=== PATIENT | female | born 1990 | race Caucasian/White ===

== ENCOUNTER 2025-07-16 02:16 | Observation (INO) ==
--- NOTE | 2025-07-16 02:34 | Emergency Department Note ---
Impression & Plan Acute cholecystitis ED Provider Note CHIEF COMPLAINT: Abdominal pain HISTORY OF PRESENTING ILLNESS: Patient is a 34-year-old female who arrives to the emergency department for evaluation of epigastric pain with radiation into the back. Patient states she is currently awaiting consultation for a general surgeon for a routine cholecystectomy, due to gallbladder sludge, and gallstones. The patient states she began to develop severe pain, with nausea and vomiting at approximately midnight. She reports no fever, however she is diaphoretic. REVIEW OF SYSTEMS: See HPI for pertinent positives and pertinent negatives. ALLERGIES: See below MEDICATIONS: See below PAST MEDICAL HISTORY: See below PHYSICAL EXAM: VITALS: Vitals are noted on the nurse's note and reviewed by myself. Vital signs stable. GENERAL: 34-year-old female, in mild distress, diaphoretic, well-developed well- nourished. SKIN: The skin was without rashes, erythema, edema, or bruising. HEAD: Normocephalic atraumatic. HEART: Regular rate and rhythm without murmurs gallops or rubs. LUNGS: Clear to auscultation bilaterally without wheezes, rales or rhonchi. No retractions or accessory muscle use. ABDOMEN: Positive bowel sounds x 4. Soft, tenderness to palpation epigastrium, right upper quadrant. No rebound tenderness or guarding. MUSCULOSKELETAL: No muscle atrophy, erythema, or edema noted. Normal gait. Strength 5/5 throughout. NEURO: Patient was alert and oriented to person place and time. No focal neurological deficits. DIFFERENTIAL DIAGNOSIS: Cholecystitis, biliary colic, choledocholithiasis, pancreatitis, cholangitis, hepatitis, hepatic abscess, liver mass, PUD, gastritis, ischemia, as well as other pathologies. ED COURSE AND MEDICAL DECISION MAKING: HISTORY FROM INDEPENDENT HISTORIAN: Mother at bedside serving secondary historian. MEDICATIONS GIVEN: 1 L NSS bolus, 4 mg IV Zofran x 2 doses, 4 mg IV morphine, 0.5 mg hydromorphone, 1 mg hydromorphone, 4.5 g Zosyn INTERPRETATION OF LABS: I interpreted the labs with full lab results as below in the lab section of this note. Pertinent lab results discussed in the MDM section below. INTERPRETATION OF IMAGING: Imaging studies were interpreted by myself and read by radiology as per the imaging section of this note. MDM SUMMARY: The patient is a pleasant, 34-year-old female who arrives to the emergency department for evaluation of the above-stated complaint. Saline lock was established, lab work was obtained. Lab work shows leukocytosis 15.48, no anemia. CMP is unremarkable, lipase negative. hCG qualitative negative. Urinalysis negative for infection. Ultrasound imaging of the gallbladder was obtained which shows a distended gallbladder measuring 15.4 cm, with a thickened wall measuring 3.3 mm with trace edema. Evidence of stone and sludge present, with a 6 mm stone seen at the neck versus the cystic duct. CBD measures 6.5 mm. Patient was provided IV fluids, IV Zofran, pain control, and antibiotics as above. I spoke with Dr. Nuñez[facility]. GI consult will be obtained due to COPD dilatation. Patient has no transaminitis, normal lipase. The patient was admitted to Dr. Paul, please refer to his documentation, as well as GEN surge, and GI for further patient evaluation and treatment. DIAGNOSIS: Acute cholecystitis The chart was completed utilizing [employer] Speech voice recognition software. Grammatical errors, random word insertions, pronoun errors, and incomplete sentences are an occasional consequence of this system due to software limitations, ambient noise, and hardware issues. Any formal questions or concerns about the content, text, or information contained within the body of this dictation should be directly addressed to the provider for clarification. Past Med/Surg History Problem List (Updated 07/16/25 @ 06:27 by MAREK Singh) Acute cholecystitis (Acute) Medical History No significant past medical history Surgical History No pertinent past surgical history Social History Smoking Status: Current every day smoker Tobacco Type: E-cigarettes / Vaping Second Hand Exposure: No; Do You Dip or Chew Tobacco: No; Hx Alcohol Use: No Hx Substance Use: No Preferred Language: Czech Communication Ability: Effective Transport Medic Required: No Beliefs That Will Affect Care: None Current Living Situation: Family Other Information That Helps Us Care for You: No Feels Safe at Home: Yes Safety Concerns: Feels Safe At This Time Assistive Devices: Glasses Allergies Allergies Allergy/AdvReac Type Severity Reaction Status Date / Time amoxicillin Allergy Mild Rash Verified 06/21/25 18:36 erythromycin base Allergy Mild Rash Verified 06/21/25 18:36 Home Meds Home Medications Medication Instructions Recorded Confirmed norethindrone acetate 1 mg-ethinyl 1 tab PO DAILY 06/28/25 07/16/25 estradiol 20 mcg tablet (Microgestin) semaglutide (weight loss) 2.4 2.4 mg subcut WK 06/28/25 07/16/25 mg/0.75 mL subcutaneous pen injector (Wegovy) Previous Rx's Medication Instructions Recorded pantoprazole 40 mg tablet,delayed 40 mg PO DAILY #30 tabs 06/28/25 release (Protonix) Results & Data (ED) Vital Signs Vital Signs - 24 hr 07/16/25 02:20 07/16/25 02:38 07/16/25 02:53 Temperature 36.5 C Temperature Source Temporal Artery Scan Pulse Rate 78 72 Pulse Rate [Finger] 80 Pulse Rhythm [Finger] Regular Pulse Strength [Finger] Normal Respiratory Rate 16 20 Respiratory Effort / Characteristics Non-Labored Spontaneous Non-Labored Spontaneous Respiratory Depth Normal Normal Respiratory Pattern Regular Regular Blood Pressure 114/76 Blood Pressure [Right Arm] 93/62 L Blood Pressure Mean 88 Blood Pressure Mean [Right Arm] 72 Blood Pressure Position [Right Arm] Lying Pulse Oximetry 97 98 Oxygen Delivery Method Room Air Room Air Sepsis Recent Fever Within 48 Hours No Sepsis New/Unexplained Change in Mental Status No Sepsis Action Taken by Nursing No Action Required Home Medications Current Medication List: was personally reviewed by me Laboratory Data Attestation: I reviewed the patient's lab results. 07/16/25 02:38 07/16/25 02:38 Lab Results 07/16/25 Range/Units 02:38 WBC 15.48 H (4.8-10.8) K/ul RBC 5.02 (4.20-5.40) M/uL Hgb 14.5 (12.0-16.0) g/dl Hct 42.6 (37.0-47.0) % MCV 84.9 (80.0-100.0) fL MCH 28.9 (25.0-34.0) pg MCHC 34.0 (32.0-36.0) g/dL RDW Std Deviation 39.5 (36.4-46.3) fL RDW Coeff of Cheryle 12.9 (11.5-14.5) % Plt Count 223 (130-400) K/uL MPV 12.2 (9.4-12.4) fL Immature Gran % (Auto) 0.5 % Neut % (Auto) 65.5 % Lymph % (Auto) 26.2 % Jennings % (Auto) 5.9 % Eos % (Auto) 1.6 % Baso % (Auto) 0.3 % Neut # (Auto) 10.16 H (1.40-6.50) K/uL Lymph # (Auto) 4.05 H (1.20-3.40) K/uL Jennings # (Auto) 0.92 H (0.11-0.59) K/uL Eos # (Auto) 0.24 (0.00-0.50) K/uL Baso # (Auto) 0.04 (0.00-0.20) K/uL Immature Gran # (Auto) 0.07 (0.01-0.20) K/uL Sodium 139 (136-145) mmol/L Potassium 3.6 (3.5-5.1) mmol/L Chloride 105 (98-107) mmol/L Carbon Dioxide 23 (21-32) mmol/L Anion Gap 11 (3-11) BUN 12 (6-23) mg/dl Creatinine 0.88 (0.6-1.2) mg/dl Est Cr Clr Drug Dosing 106.0 ml/min eGFR 89.49 BUN/Creatinine Ratio 13.6 (10-20) Glucose 146 H (70-99(Fasting)) mg/dl Calcium 9.3 (8.6-10.3) mg/dl Total Bilirubin 0.7 (0.2-1.0) mg/dl AST 29 (13-39) U/L ALT 52 (7-52) U/L Alkaline Phosphatase 35 (34-104) U/L Total Protein 7.6 (6.0-8.3) gm/dl Albumin 4.1 (3.4-5.0) gm/dl Globulin 3.5 (2.5-4.0) gm/dl Albumin/Globulin Ratio 1.2 (0.9-2) Lipase 28 (11-82) U/L Administered Medications Sodium Chloride (Nss) 1,000 mls @ 100 mls/hr IV .Q10H ONE Stop: 07/16/25 14:59 Last Admin: 07/16/25 05:58 Dose: 100 mls/hr Documented By: MAURICE Discontinued Medications Hydromorphone HCl (Hydromorphone Inj 0.5 Mg/0.5 Ml Syr) 0.5 mg IV NOW STA Stop: 07/16/25 03:26 Last Admin: 07/16/25 03:32 Dose: 0.5 mg Documented By: BRANDIE Hydromorphone HCl (Hydromorphone Inj 1 Mg/Ml Syringe) 1 mg IV NOW STA Stop: 07/16/25 04:34 Last Admin: 07/16/25 04:47 Dose: 1 mg Documented By: BRANDIE Sodium Chloride (Nss) 1,000 mls @ 999 mls/hr IV .Q1H1M ONE Stop: 07/16/25 03:38 Last Infusion: 07/16/25 03:33 Dose: Infused Documented By: Admin: 07/16/25 02:45 Dose: 999 mls/hr Documented By: MONAE Piperacillin Sod/Tazobactam Sod (Zosyn) 4.5 gm in 100 mls @ 200 mls/hr IV NOW ONE; Protocol Stop: 07/16/25 05:03 Last Infusion: 07/16/25 05:23 Dose: Infused Documented By: Admin: 07/16/25 04:47 Dose: 200 mls/hr Documented By: BRANDIE Morphine Sulfate (Morphine Sulfate 4 Mg/Ml 1 Ml Carp\Vial) 4 mg IV NOW STA Stop: 07/16/25 02:39 Last Admin: 07/16/25 02:46 Dose: 4 mg Documented By: MONAE Ondansetron HCl (Ondansetron Inj 2 Mg/Ml 2 Ml Vial) 4 mg IV NOW STA Stop: 07/16/25 02:39 Last Admin: 07/16/25 02:45 Dose: 4 mg Documented By: MONAE Ondansetron HCl (Ondansetron Inj 2 Mg/Ml 2 Ml Vial) 4 mg IV NOW STA Stop: 07/16/25 04:35 Last Admin: 07/16/25 04:47 Dose: 4 mg Documented By: BRANDIE Imaging Data Attestation: I personally reviewed and interpreted this imaging study as follows: Radiologist's Impression: Gallbladder Ultrasound 07/16/25 02:38 EXAM: US gallbladder CLINICAL HISTORY: epigastric/RUQ pain TECHNIQUE: Limited ultrasound of the liver and gallbladder was performed in grayscale and Doppler. Multiple images were obtained in transverse and longitudinal planes. COMPARISON: No prior studies are available for comparison. FINDINGS: Liver: Liver size: 16.5 cm, with mildly increased echogenicity. No evidence of focal lesions, cysts, or masses. Hepatic vasculature appears normal. Gallbladder: Gallbladder size: Distended, measured 15.4 cm. The thickened wall measured 3.3 mm, with trace edema. Evidence of stones and sludge, with a 6-mm stone seen at the neck vs. the cystic duct, which did not move with a change in position. Biliary Tree: Common bile duct diameter: dilated, measured 6.5 mm. Right kidney: normal size, no hydronephrosis. Pancreas: Limited visualization of the tail due to bowel gas. IMPRESSION: 1. Mildly enlarged echogenic liver. 2. Calculous cholecystitis. Electronically signed by Ty Pearl 07-16-2025 05:29 AM Discharge Plan Visit Data Chief Complaint: Back Injury/Pain Stated Complaint: BACK PAIN, NAUSEA, VOMITING - GAULBLADDER? ED Provider: Kaleb Tinajero ED Midlevel Provider: Sanam Al Discharge Problem: Acute cholecystitis Patient Disposition: Admitted As Inpatient Condition: Fair Discharge Instructions Interventions: ED Discharge Assessment Last Done: 07/16/25 05:50
[2025-07-16] MEDS: SODIUM CHLORIDE 0.9% 1,000 ML IV ONE ×2 (02:45→05:58)
[2025-07-16] MEDS: ONDANSETRON INJ 2 MG/ML 2 ML VIAL IV STA ×2 (02:45→04:47)
[2025-07-16] MEDS: MoRPHine SULFATE 4 MG/ML 1 ML CARP\\VIAL IV STA (02:46)
[2025-07-16 02:53] LABS: Hematocrit (blood only) 42.6 % (37.0-47.0); Hemoglobin 14.5 g/dl (12.0-16.0); Immature Granulocytes # (auto) 0.07 K/uL (0.01-0.20); Immature Granulocytes % (auto) 0.5 %; Mean Corpuscular Hemoglobin 28.9 pg (25.0-34.0); Mean Corpuscular Volume 84.9 fL (80.0-100.0); Platelet Count 223 K/uL (130-400); RDW Standard Deviation 39.5 fL (36.4-46.3); Red Blood Count 5.02 M/uL (4.20-5.40); White Blood Count 15.48 K/ul (4.8-10.8)
[2025-07-16 03:11] LABS: Alanine Aminotransferase 52.0 U/L (7-52); Albumin Globulin Ratio 1.2 (0.9-2); Alkaline Phosphatase 35.0 U/L (34-104); Anion Gap 11.0 (3-11); Bilirubin,Total 0.7 mg/dl (0.2-1.0); Blood Urea Nitrogen 12.0 mg/dl (6-23); Calcium 9.3 mg/dl (8.6-10.3); Carbon Dioxide 23.0 mmol/L (21-32); Chloride 105.0 mmol/L (98-107); Creatinine Clr Calc Pharmacy 106.0 ml/min; Globulin 3.5 gm/dl (2.5-4.0); Glucose 146.0 mg/dl (70-99(Fasting)); Lipase 28.0 U/L (11-82); Potassium 3.6 mmol/L (3.5-5.1); Sodium 139.0 mmol/L (136-145); Total Protein 7.6 gm/dl (6.0-8.3)
[2025-07-16] MEDS: HYDROmorphone INJ 0.5 MG/0.5 ML SYR IV STA (03:32)
--- NOTE | 2025-07-16 04:45 | History & Physical Report ---
Date of Service July 16, 2025 Assessment & Plan (1) Acute cholecystitis: Plan: Assessment and plan below following discussion of case with ED provider and reviewing patient history/pertinent normal/abnormal diagnostic test results. Acute calculus cholecystitis No sepsis for now Hypotension secondary to above GERD, on PPI Hyperglycemia rule out DM obesity on Wegovy Ongoing vape use Admit to med/tele Zosyn Check lactic acid IVF General Surgery consult re: cholecystitis (ED provider already in touch with Dr. Nuñez.) N.p.o. in anticipation of procedure Check hemoglobin A1c DVT prophylaxis. SCDs re: possible procedure Full code Patient mother requesting updates providers. Miss Catalina Bowman, contact #[phone]. Text document was generated using [employer] voice recognition software. It may contain grammatical or spelling errors. Kindly contact undersigned for clarification of any documentation item in question. History of Present Illness Chief Complaint: Abdominal pain Primary Care Provider: Kael Rivero MD History obtained from patient, family, and records. Medical history significant for GERD, cholelithiasis, obesity on Wegovy, ongoing vape use. 1 month history of upper abdominal pain usually precipitated by food intake. Some nausea symptoms. Occasional radiation to the back. Patient seen at PCP's office 5 days ago. Outpatient gallbladder ultrasound showed Cholelithiasis and intraluminal gallbladder sludge Outpatient General Surgery referral contemplated 2 weeks from now. Last night, patient had more intense achy abdominal pain going to the back and lower chest associated with nausea, emesis symptoms. No fever, no chills. Lowest SBP of 90s documented at the ER. IV Zosyn administered at the ER. Medical History as above Surgical History : Dental surgery Family History : Blood clot, stroke, DM Personal/Social history : Ongoing vape use, occasional EtOH intake, [employer] administrative personal assistant Allergies Allergy/AdvReac Type Severity Reaction Status Date / Time amoxicillin Allergy Mild Rash Verified 06/21/25 18:36 erythromycin base Allergy Mild Rash Verified 06/21/25 18:36 Home Medications Medication Instructions Recorded Confirmed Type norethindrone acetate 1 mg-ethinyl 1 tab PO DAILY 06/28/25 07/16/25 History estradiol 20 mcg tablet (Microgestin) pantoprazole 40 mg tablet,delayed 40 mg PO DAILY #30 tabs 08/05/25 08/23/25 Rx release (Protonix) semaglutide (weight loss) 2.4 2.4 mg subcut WK 06/28/25 07/16/25 History mg/0.75 mL subcutaneous pen injector (Chetan) Past Med/Surg History Problem List (Updated 07/16/25 @ 06:27 by AMREK Singh) Acute cholecystitis (Acute) Medical History No significant past medical history Surgical History No pertinent past surgical history Social History Smoking Status: Current every day smoker Tobacco Type: E-cigarettes / Vaping Second Hand Exposure: No; Do You Dip or Chew Tobacco: No; Hx Alcohol Use: No Hx Substance Use: No Preferred Language: Angolan Communication Ability: Effective Infectious Waste Technician Required: No Beliefs That Will Affect Care: None Current Living Situation: Family Other Information That Helps Us Care for You: No Feels Safe at Home: Yes Safety Concerns: Feels Safe At This Time Assistive Devices: Glasses Review of Systems Review of Systems: As per HPI, all other systems reviewed and negative Physical Exam Physical Exam: GENERAL: Comfortable, pleasant, no respiratory distress SKIN: Normal color, warm HEENT: [place] palpebral conjunctivae, no ptosis, dry buccal mucosa NECK : Supple, no tenderness CHEST : CTA, no tenderness HEART : RRR, no obvious murmurs ABDOMEN: Some distention, RUQ tenderness EXTREMITIES : No LE swelling/tenderness, palpable pulses, no other conspicuous deformities noted NEUROLOGIC : Coherent, no facial asymmetry, no other gross focality Results & Data Results & Data Vital Signs (Past 12 Hours) Vital Signs Temp Pulse Pulse Resp BP BP Pulse Ox 07/16/25 02:53 72 07/16/25 02:38 80 20 93/62 L 98 07/16/25 02:20 36.5 C 78 16 114/76 97 O2 Del Method 07/16/25 02:53 07/16/25 02:38 Room Air 07/16/25 02:20 Room Air Laboratory Results Laboratory Results WBC 15.48 K/ul (4.8-10.8) H 07/16/25 02:38 RBC 5.02 M/uL (4.20-5.40) 07/16/25 02:38 Hgb 14.5 g/dl (12.0-16.0) 07/16/25 02:38 Hct 42.6 % (37.0-47.0) 07/16/25 02:38 MCV 84.9 fL (80.0-100.0) 07/16/25 02:38 MCH 28.9 pg (25.0-34.0) 07/16/25 02:38 MCHC 34.0 g/dL (32.0-36.0) 07/16/25 02:38 RDW Std Deviation 39.5 fL (36.4-46.3) 07/16/25 02:38 RDW Coeff of Cheryle 12.9 % (11.5-14.5) 07/16/25 02:38 Plt Count 223 K/uL (130-400) 07/16/25 02:38 MPV 12.2 fL (9.4-12.4) 07/16/25 02:38 Immature Gran % (Auto) 0.5 % 07/16/25 02:38 Neut % (Auto) 65.5 % 07/16/25 02:38 Lymph % (Auto) 26.2 % 07/16/25 02:38 Gordon % (Auto) 5.9 % 07/16/25 02:38 Eos % (Auto) 1.6 % 07/16/25 02:38 Baso % (Auto) 0.3 % 07/16/25 02:38 Neut # (Auto) 10.16 K/uL (1.40-6.50) H 07/16/25 02:38 Lymph # (Auto) 4.05 K/uL (1.20-3.40) H 07/16/25 02:38 Gordon # (Auto) 0.92 K/uL (0.11-0.59) H 07/16/25 02:38 Eos # (Auto) 0.24 K/uL (0.00-0.50) 07/16/25 02:38 Baso # (Auto) 0.04 K/uL (0.00-0.20) 07/16/25 02:38 Immature Gran # (Auto) 0.07 K/uL (0.01-0.20) 07/16/25 02:38 Sodium 139 mmol/L (136-145) 07/16/25 02:38 Potassium 3.6 mmol/L (3.5-5.1) 07/16/25 02:38 Chloride 105 mmol/L (98-107) 07/16/25 02:38 Carbon Dioxide 23 mmol/L (21-32) 07/16/25 02:38 Anion Gap 11 (3-11) 07/16/25 02:38 BUN 12 mg/dl (6-23) 07/16/25 02:38 Creatinine 0.88 mg/dl (0.6-1.2) 07/16/25 02:38 Est Cr Clr Drug Dosing 106.0 ml/min 07/16/25 02:38 eGFR 89.49 07/16/25 02:38 BUN/Creatinine Ratio 13.6 (10-20) 07/16/25 02:38 Glucose 146 mg/dl (70-99(Fasting)) H 07/16/25 02:38 Calcium 9.3 mg/dl (8.6-10.3) 07/16/25 02:38 Total Bilirubin 0.7 mg/dl (0.2-1.0) 07/16/25 02:38 AST 29 U/L (13-39) 07/16/25 02:38 ALT 52 U/L (7-52) 07/16/25 02:38 Alkaline Phosphatase 35 U/L (34-104) 07/16/25 02:38 Total Protein 7.6 gm/dl (6.0-8.3) 07/16/25 02:38 Albumin 4.1 gm/dl (3.4-5.0) 07/16/25 02:38 Globulin 3.5 gm/dl (2.5-4.0) 07/16/25 02:38 Albumin/Globulin Ratio 1.2 (0.9-2) 07/16/25 02:38 Lipase 28 U/L (11-82) 07/16/25 02:38
[2025-07-16] MEDS: PIPERACILLIN/TAZOBACTAM 4.5 GM/100 ML BAG IV ONE (04:47)
[2025-07-16] MEDS: HYDROmorphone INJ 1 MG/ML SYRINGE IV STA (04:47)
[2025-07-16] MEDS ORDERED: MoRPHine SULFATE 4 MG/ML 1 ML CARP\\VIAL IV PRN ×2 (05:01→08:23)
[2025-07-16] MEDS ORDERED: LORazepam 0.5 MG TAB PO PRN (05:01)
--- NOTE | 2025-07-16 05:30 | Ultrasound Report ---
EXAM: US gallbladder CLINICAL HISTORY: epigastric/RUQ pain TECHNIQUE: Limited ultrasound of the liver and gallbladder was performed in grayscale and Doppler. Multiple images were obtained in transverse and longitudinal planes. COMPARISON: No prior studies are available for comparison. FINDINGS: Liver: Liver size: 16.5 cm, with mildly increased echogenicity. No evidence of focal lesions, cysts, or masses. Hepatic vasculature appears normal. Gallbladder: Gallbladder size: Distended, measured 15.4 cm. The thickened wall measured 3.3 mm, with trace edema. Evidence of stones and sludge, with a 6-mm stone seen at the neck vs. the cystic duct, which did not move with a change in position. Biliary Tree: Common bile duct diameter: dilated, measured 6.5 mm. Right kidney: normal size, no hydronephrosis. Pancreas: Limited visualization of the tail due to bowel gas. IMPRESSION: 1. Mildly enlarged echogenic liver. 2. Calculous cholecystitis. Electronically signed by Ty Pearl 07-16-2025 05:29 AM
[2025-07-16] MEDS: PROMETHAZINE 6.25 MG/50.25 ML BAG IV PRN (06:20)
[2025-07-16 09:00] LABS: Appearance Urine Cloudy (Clear); Bacteria Urine Automated None Seen (None Seen); Cast Urine Automated 0-2 /lpf (0-2); Epithelial Cell Urine Auto 0-2 /hpf (0-2); Glucose Urine UA Negative (Negative); WBC Urine Automated 0-5 /hpf (0-5)
--- NOTE | 2025-07-16 09:11 | Surgery Consultation ---
Date of Consultation July 16, 2025 Assessment & Plan (1) Acute cholecystitis: Plan Patient presenting with symptoms, clinical signs and radiographic evidence for acute cholecystitis. Leukocytosis this am, LFTs WNL. Plan for laparoscopic cholecystectomy today. The details of the procedure have been explained to her including the risks, benefits and alternatives. Consent has been obtained. NPO IVF, IV abx. Pt is on Zosyn. Hold chemical DVT ppx Ambulate as tolerated and TEDs or SCDs while in bed History of Present Illness Attending Physician: Avery Key MD History of Present Illness 34F with PMHx Obesity, GERD presented to the ED with right upper back, b/l subcostal and epigastric pain that started around 11:30 last night. The pain worsened and was a/w vomiting. Was also having cold sweats although her temp taken at home was afebrile. She states she has had a couple of attacks, most recently 07/10, 07/07, 07/03, 06/28, 06/23 and 05/11 and was contemplating following up with surgery to discuss cholecystectomy as an outpatient US identified cholelithiasis. In the ED, a RUQ US was performed confirming a stone wedged in the neck of the GB, sludge and trace pericholecystic fluid. No leukocytosis on initial labs, WBC 15 this am. Afebrile and HD stable. She has been admitted to the medical service o/n and a surgical consultation has been requested. No PSHx, only wisdom tooth extraction. Allergies Allergy/AdvReac Type Severity Reaction Status Date / Time amoxicillin Allergy Mild Rash Verified 06/21/25 18:36 erythromycin base Allergy Mild Rash Verified 06/21/25 18:36 Home Medications Medication Instructions Recorded Confirmed Type norethindrone acetate 1 mg-ethinyl 1 tab PO DAILY 06/28/25 07/16/25 History estradiol 20 mcg tablet (Microgestin) pantoprazole 40 mg tablet,delayed 40 mg PO DAILY #30 tabs 06/28/25 07/16/25 Rx release (Protonix) semaglutide (weight loss) 2.4 2.4 mg subcut WK 06/28/25 07/16/25 History mg/0.75 mL subcutaneous pen injector (Wegovy) Patient History Medical History No significant past medical history Surgical History No pertinent past surgical history Social History Smoking Status: Current every day smoker Tobacco Type: E-cigarettes / Vaping Second Hand Exposure: No; Do You Dip or Chew Tobacco: No; Hx Alcohol Use: No Hx Substance Use: No Preferred Language: Portuguese Communication Ability: Effective Agricultural Extension Specialist Required: No Beliefs That Will Affect Care: None Current Living Situation: Family Other Information That Helps Us Care for You: No Feels Safe at Home: Yes Safety Concerns: Feels Safe At This Time Assistive Devices: Glasses Review of Systems Constitutional: + chills and + sweats; no fever and no b lorraine aches Cardiovascular: no chest pain, no palpitations, no lightheadedness and no syncope Gastrointestinal: + nausea (resolved am) and + vomiting (r esolved); no belching and no heartburn Genitourinary: no dysuria, no difficulty urinating, no urinary frequency and no urinary incontinence Physical Exam Constitutional: + obese; not ill appearing, not in distr ess and not diaphoretic Respiratory: normal respiratory effort; no respiratory distress, no labored breathing and does not use accessory muscles Cardiovascular: Rate/Rhythm: regular rate; not tachycardic Extremities: no edema Gastrointestinal (Abdomen): Inspection/Auscultation: abdomen normal to inspection; abdomen not distended Percussion/Palpation: + abdomen tender (TTP moderate RUQ, minimal epigastric), + guarding (voluntary) and abdomen soft; abdomen not rigid Skin: warm, dry, no jaundice Results & Data Vital Signs (Past 12 Hours) Vital Signs Temp Pulse Pulse Resp BP BP BP 07/16/25 08:13 36.2 C L 72 16 115/81 07/16/25 07:28 73 07/16/25 05:50 07/16/25 05:49 36.4 C L 68 18 117/85 07/16/25 05:00 68 17 116/75 07/16/25 02:53 72 07/16/25 02:38 80 20 93/62 L 07/16/25 02:20 36.5 C 78 16 114/76 Pulse Ox O2 Del Method 08/23/25 08:13 97 Room Air 07/16/25 07:28 07/16/25 05:50 Room Air 07/16/25 05:49 97 Room Air 07/16/25 05:00 100 07/16/25 02:53 07/16/25 02:38 98 Room Air 07/16/25 02:20 97 Room Air Diagnostic Findings I have personally reviewed her abdominal US images Results Complete Blood Count Results: RBC 5.02 M/uL (4.20-5.40) 07/16/25 WBC 15.48 K/ul (4.8-10.8) H 07/16/25 Hgb 14.5 g/dl (12.0-16.0) 07/16/25 Hct 42.6 % (37.0-47.0) 07/16/25 Plt Count 223 K/uL (130-400) 07/16/25 Results CMP Results: Sodium 139 mmol/L (136-145) 07/16/25 Potassium 3.6 mmol/L (3.5-5.1) 07/16/25 Chloride 105 mmol/L (98-107) 07/16/25 Carbon Dioxide 23 mmol/L (21-32) 07/16/25 Anion Gap 11 (3-11) 07/16/25 BUN 12 mg/dl (6-23) 07/16/25 Creatinine 0.88 mg/dl (0.6-1.2) 07/16/25 eGFR 89.49 07/16/25 BUN/Creatinine Ratio 13.6 (10-20) 07/16/25 Glucose 146 mg/dl (70-99(Fasting)) H 07/16/25 Calcium 9.3 mg/dl (8.6-10.3) 07/16/25 Total Bilirubin 0.7 mg/dl (0.2-1.0) 07/16/25 AST 29 U/L (13-39) 07/16/25 ALT 52 U/L (7-52) 07/16/25 Alkaline Phosphatase 35 U/L (34-104) 07/16/25 Total Protein 7.6 gm/dl (6.0-8.3) 07/16/25 Albumin 4.1 gm/dl (3.4-5.0) 07/16/25 Globulin 3.5 gm/dl (2.5-4.0) 07/16/25 Albumin/Globulin Ratio 1.2 (0.9-2) 07/16/25 PG Care Time/CCT Total # of Minutes Spent Total Time Spent with Patient: Total time spent is greater than 50% in coordination of care (as documented) at patient's floor/unit and/or counseling patient: Coding Level of Care Code 45512 OFFICE CONSULT LVL Diagnoses Acute cholecystitis K81.0
[2025-07-16] MEDS: PIPERACILLIN/TAZOBACTAM 4.5 GM/100 ML BAG IV SCH (10:15)
--- NOTE | 2025-07-16 10:21 | Communication Note ---
Date of Service: July 16, 2025 Admitted overnight, see H&P. Patient admitted for abdominal pain, chills and with gall bladder u/s showing findings consistent with acute cholecystitis. Gen: WD/WN, NAD, resting in bed, appears acutely ill, A&Ox3 HEENT: Normocephalic, atraumatic Lung: Clear to Auscultation bilaterally Heart: Regular rate, regular rhythm Abdomen: Soft, epigastric TTP extending in bandlike distribution and wrapping around upper back Extremities: no edema Skin: Warm, no rash Acute calculus cholecystitis DId not meet sepsis criteria on admission NPO, IV fluids, IV Zosyn, antiemetics Gen surg saw this AM - plan for lap rajan in OR today Currently comfortable GERD- recently started on PPI Obesity - on Wegovy Ongoing vape use DVT Ppx: no chemical ppx given OR Code status: FULL PCP: Josefa Dispo: Admitted to [facility] - likely dc later today / tomorrow I personally interviewed and examined the patient at bedside. Patient is planned for cholecystectomy today. Discussed with surgery today. I have reviewed the advanced practitioner's documentation on the date of service referred in note and agree with plan. Patient's care is coordinated with Camilla Tanner PA-C. Please refer to the documentation above for details of patient's presentation and for discussion of other issues. I spent a total [id number] coordinating, documenting, and providing care for this patient excluding time spent in the performance of separately billed services or time spent by another provider/QHP.
[2025-07-16] MEDS ORDERED: ONDANSETRON INJ 2 MG/ML 2 ML VIAL ONE (14:57)
[2025-07-16] MEDS ORDERED: DEXAMETHASONE SOD INJ 4 MG/ML VIAL ONE (14:57)
[2025-07-16] MEDS ORDERED: PROPOFOL IV EMULSION 10 MG/ML 20 ML VIAL IV ONE (14:58)
[2025-07-16] MEDS ORDERED: KETOROLAC 30 MG/ML VIAL ONE (14:58)
[2025-07-16] MEDS ORDERED: SUGAMMADEX SODIUM 200 MG/2 ML VIAL IV ONE (14:58)
[2025-07-16] MEDS ORDERED: ROCURONIUM BROMIDE 10 MG/ML 5 ML VIAL IV ONE ×2 (14:58→16:45)
[2025-07-16] MEDS ORDERED: HYDROmorphone INJ 1 MG/ML SYRINGE IV PRN (15:20)
[2025-07-16] MEDS ORDERED: PROMETHAZINE HCL 6.25 MG in SODIUM CHLORIDE 0.9% 50 ML IV PRN (15:20)
[2025-07-16] MEDS ORDERED: ONDANSETRON INJ 2 MG/ML 2 ML VIAL IV PRN (15:20)
[2025-07-16] MEDS ORDERED: ATROPINE SULFATE 0.1 MG/ML 10ML SYR IV PRN (15:20)
--- NOTE | 2025-07-16 15:20 | Anesthesiology Consultation ---
Date of Service July 16, 2025 Assessment & Plan ASA ASA2 Proposed Anesthesia Anesthesia Type: General Risk / Benefits Reviewed With: PT / POA / Parent / Guardian, Accepts Plan and Informed Consent Obtained History Surgery Operation Date: 07/16/25 08:05 Proposed Procedures p Laparoscopic Cholecystectomy - Yolette Nuñez, Height/Weight Height: 5 ft 9 in Weight: 84.8 kg Allergies Allergy/AdvReac Type Severity Reaction Status Date / Time amoxicillin Allergy Mild Rash Verified 06/21/25 18:36 erythromycin base Allergy Mild Rash Verified 06/21/25 18:36 Medications Home Medications Medication Instructions Recorded Confirmed Last Taken norethindrone acetate 1 mg-ethinyl 1 tab PO DAILY 06/28/25 07/16/25 Unknown estradiol 20 mcg tablet (Microgestin) pantoprazole 40 mg tablet,delayed 40 mg PO DAILY #30 tabs 06/28/25 07/16/25 Unknown release (Protonix) semaglutide (weight loss) 2.4 2.4 mg subcut WK 06/28/25 07/16/25 Unknown mg/0.75 mL subcutaneous pen injector (Welubnavy) Active Medications Generic Name Dose Route Start Last Admin Trade Name Freq PRN Reason Stop Dose Admin Promethazine HCl 6.25 mg in 50.25 mls @ 201 mls/hr 07/16/25 05:01 07/16/25 06:35 Phenergan IV 08/15/25 05:00 Infused Q6H PRN Infusion Nausea And Vomiting Piperacillin Sod/Tazobactam Sod 4.5 gm in 100 mls @ 25 mls/hr 07/16/25 10:00 07/16/25 14:18 Zosyn IV 07/26/25 09:59 Infused Q8H RUTHIE Infusion Protocol Miscellaneous 1 each 07/16/25 08:00 07/16/25 08:26 (Norethindrone Ac-Eth Estradiol [Microgestin 20 (21)] 1-20 Mgorder Awaiting Action N/A 08/15/25 07:59 Not Given QS RUTHIE Oxycodone HCl 5 mg 07/16/25 05:01 07/16/25 10:14 Oxycodone Hcl Ir 5 Mg Tab (Immediate Release) PO 07/30/25 05:00 5 mg Q4H PRN Administration Pain Pantoprazole Sodium 40 mg 07/16/25 09:00 07/16/25 08:29 Pantoprazole 40 Mg Tab PO 08/15/25 08:59 40 mg DAILY RUTHIE Administration Past Medical History Medical History No significant past medical history Exercise / Class Metabolic Activity II 4-5 Yardwork/Stairs/Walk up hill Past Surgical History Surgical History No pertinent past surgical history Past Anesthesia History No Hx of Anesthesia Complications and No Family Hx of Anesthesia Complications History of PONV No Hx of PONV and No Hx of Motion Sickness Social History Smoking Status: Current every day smoker Do You Dip or Chew Tobacco: No Hx Alcohol Use: No Hx Substance Use: No substance use type: does not use Review of Systems denies fever/cough/ colds/ chest pain/ SOB/ LES denies LES Physical Exam Vital Signs Last Vital Signs Temp 37.2 C 07/16/25 11:42 Pulse 62 07/16/25 13:27 Resp 12 07/16/25 11:42 BP 93/57 L 07/16/25 11:42 Pulse Ox 99 07/16/25 11:42 O2 Del Method Room Air 07/16/25 11:42 ENMT Mouth: no TMJ abnormality and no dentition abnormality Thyromental Distance: > or= 3.5 Finger Breadths Mallampati Class: II Neck neck extension not limited Respiratory normal respiratory effort; no respiratory distress Auscultation: lungs clear to auscultation bilaterally Cardiovascular Rate/Rhythm: regular rate and regular rhythm Neurologic moves all extremities Psychiatric Orientation: alert and oriented x 3 Testing Laboratory Results 07/16/25 02:38 07/16/25 02:38 HCG, Quant < 1 mIU/ml 07/16/25 06:13 Urine Color Dark Yellow 07/16/25 Unknown Urine Appearance Cloudy (Clear) A 07/16/25 Unknown Urine pH 5.0 (4.5-7.5) 07/16/25 Unknown Ur Specific [place] 1.024 (1.000-1.030) 07/16/25 Unknown Urine Protein Negative (Negative) 07/16/25 Unknown Urine Glucose (UA) Negative (Negative) 07/16/25 Unknown Urine Ketones 1+ (Negative) H 07/16/25 Unknown Urine Nitrite Negative (Negative) 07/16/25 Unknown Ur Leukocyte Esterase Trace (Negative) H 07/16/25 Unknown Urine WBC (Auto) 0-5 /hpf (0-5) 07/16/25 Unknown Urine RBC (Auto) 3-5 /hpf (0-2) H 07/16/25 Unknown U Hyaline Cast (Auto) 0-2 /lpf (0-2) 07/16/25 Unknown U Epithel Cells (Auto) 0-2 /hpf (0-2) 07/16/25 Unknown Urine Bacteria (Auto) None Seen (None Seen) 07/16/25 Unknown Urine Test Negative (Negative) 07/16/25 Unknown 07/16/25 07/16/25 Unknown 06:13 HCG, Quant < 1 Urine Test Negative
[2025-07-16] MEDS ORDERED: PHENYLEPHRINE 100MCG/ML 5ML SYR ONE (15:44)
[2025-07-16] MEDS: BUPIVACAINE/EPINEPHRINE 0.5% MPF 1:200,000 30 ML VIAL ONE (17:06)
--- NOTE | 2025-07-16 17:54 | Anesthesiology Progress Note ---
Date of Service July 16, 2025 Anesthesia Post Procedure Vital Signs Vital Signs: Temp Pulse Pulse Pulse Resp BP BP 07/16/25 17:45 93 H 20 102/63 07/16/25 17:37 36.1 C L 102 H 22 100/72 07/16/25 13:27 62 07/16/25 11:42 37.2 C 76 12 93/57 L 07/16/25 08:13 36.2 C L 72 16 115/81 07/16/25 07:28 73 07/16/25 05:50 07/16/25 05:49 36.4 C L 68 18 117/85 07/16/25 05:00 68 17 116/75 07/16/25 02:53 72 07/16/25 02:38 80 20 07/16/25 02:20 36.5 C 78 16 114/76 BP Pulse Ox O2 Del Method 07/16/25 17:45 97 Room Air 07/16/25 17:37 100 Room Air 07/16/25 13:27 07/16/25 11:42 99 Room Air 07/16/25 08:13 97 Room Air 07/16/25 07:28 07/16/25 05:50 Room Air 07/16/25 05:49 97 Room Air 07/16/25 05:00 100 07/16/25 02:53 07/16/25 02:38 93/62 L 98 Room Air 07/16/25 02:20 97 Room Air Pain Intensity Back: Pain Intensity: 10 Transfer of Care Handoff Completed per policy Notes Mental Status: alert / awake / arousable and participated in evaluation Patient Amnestic to Procedure: Yes Nausea / Vomiting: adequately controlled Pain: adequately controlled Airway Patency, RR, SpO2: stable & adequate BP & HR: stable & adequate Hydration State: stable & adequate Anesthetic Complications: no major complications apparent and Pt Satisfied with anesthetic care
--- NOTE | 2025-07-16 18:01 | Operative Report ---
PG Post Operative Report Pre & Post Diagnosis Operation Date: 07/16/25 08:05 Pre-Op Diagnosis: Cholecystitis Post-Op Diagnosis: Cholecystitis I identified the patient and participated in the time-out.: Yes Procedure Operation Date: 07/16/25 08:05 Actual Procedures p Laparoscopic Cholecystectomy(Not Applicable) - Yolette Nuñez DO Surgeon Yolette Nuñez DO Retrimmer No medical surgical tech Estimated Blood Loss 15 Findings Consistent with Post-Op Diagnosis Acute cholecystitis. Very distended gallbladder packed with stones. Stone in the cystic duct. Specimens Gallbladder Anesthesia Type General Complications None Indications 34-year-old female presented to the emergency department with acute cholecystitis evidenced by ultrasound of the abdomen. Patient with ongoing symptoms. Description of Procedure The patient was brought back to the operating room and placed on the operating room table in supine position. She was connected to cardiac and oxygen monitoring, supplemental O2 was provided and SCDs were applied to bilateral lower extremities. The patient was administered general anesthesia and a secure airway was established. The abdomen was prepped and draped in typical sterile fashion and a timeout was conducted. Local anesthetic was used anesthetize the skin and subcutaneous tissue prior to making all incisions and all incisions were made with an 11 blade. Intra-abdominal access was gained at the supraumbilical fold using a Veress needle and CO2 insufflation was initiated and pneumoperitoneum was established to a goal pressure of 15 mmHg. Once this pressure was reached, a 5 mm trocar was inserted at this location using direct visualization with a 5 mm laparoscope and an Optiview port. Under direct visualization, an 11 mm trocar was inserted at the epigastric region. 2 additional 5 mm trocars were also inserted under direct visualization along the right subcostal margin. The OR table was positioned in reverse Trendelenburg and left side down. The gallbladder was identified this did not did pass with stones and extending far beyond the lateral edge of the liver towards the central intra-abdominal space. The gallbladder was decompressed. Did not decompress fully as the bile was very viscous in addition to a good portion of the gallbladder was mostly filled with stones. The gallbladder was able to be retracted. Unfortunately the left lobe of the liver was very enlarged and floppy and covered the area of planned dissection. Through maneuvering instruments with the current working ports, the cystic artery was identified and was controlled using 5 mm clips 2 proximal and 1 distal. The cystic artery was then transected. The cystic duct was enlarged and was readily identified containing a large stone that was milked back into the gallbladder. The epigastric 11 mm trocar was upgraded to a 12 mm trocar to allow for a large clip applicator. The cystic duct was then ligated using 3 large clips proximally 1 distally and then transected. The gallbladder was cauterized in the liver bed. There was a significant amount of pericolic edema present. Bleeding along the way was controlled using cautery. The gallbladder was eventually removed from the liver bed and placed in an Endo Catch bag. The epigastric incision had to be enlarged quite a bit to allow for removal of the gallbladder at this location. The gallbladder was removed and gets placed in a labeled container that sent to pathology for further analysis. Bleeding of muscle was controlled using cautery. The 11 mm trocar was reinserted into the epigastric site and the right upper quadrant was copiously irrigated and inspected for hemostasis. A small amount of bleeding at the liver bed was controlled using spray cautery at 60. The area was again copiously irrigated and suctioned until bile and blood were rinsed away. Hemostasis was again checked for the liver bed and remained adequate. The OR table was returned to the neutral position and mobilized irrigant was suctioned away. The epigastric incision was checked for bleeding from the intra-abdominal space. There was no bleeding. CO2 insufflation was discontinued, excess pneumoperitoneum was evacuated as trocars and instruments were removed. The epigastric incision was closed at the level of the fascia and muscle using 0 Vicryl suture. Additional local anesthetic was used anesthetize the fascia at the epigastric incision. 3-0 Vicryl suture was used to approximate the deep dermis at the epigastric incision. The skin at all 4 incisions was approximated using 4-0 Monocryl suture. The abdomen was wiped clean with a saline soaked lap pad and dried. Each incision was further sealed with Dermabond. The patient tolerated the procedure well. She was awakened from anesthesia, the secure airway was removed and she was transferred to recovery in stable condition. I attest to the content of the Intraoperative Record and any orders documented therein. Any exceptions are noted below.
[2025-07-16] MEDS: SODIUM CHLORIDE 0.9% 1,000 ML IV SCH (18:28)
[2025-07-16] MEDS: ACETAMINOPHEN 325 MG TAB PO PRN (19:21)
[2025-07-17] MEDS: KETOROLAC TROMETHAMINE 15 MG/ML VIAL IV ONE (00:54)
[2025-07-17] MEDS ORDERED: Nursing to Pharmacy Communication SCH (01:15)
[2025-07-17] MEDS: SODIUM CHLORIDE 0.9% 1,000 ML IV ONE (04:40)
--- NOTE | 2025-07-17 05:16 | Surgery Progress Note ---
Date of Service July 17, 2025 Assessment & Plan (1) Acute cholecystitis: Plan: Status post laparoscopic cholecystectomy on 07/16/2025 (postop day #1) Continue analgesics as needed Continue diet as toleratedthus far patient is only tolerating Jell-O and wi ll therefore keep intravenous fluids until certain oral intake is adequate Patient noted to have borderline blood pressures but she is asymptomaticwill continue to monitor and continue intravenous fluids as noted above Low-grade fever noted last night which has resolved: Will continue to monitor and if this recurs we will consider further evaluation such as urinalysis and possibly chest x-ray Continue use of incentive spirometry Mobilize as able Check a.m. labs when available If labs stable and patient remains hospitalized consider adding chemical means of DVT prophylaxis Admission and Anticipated Discharge Date Admission Date: July 16, 2025 Supervising Physician Co-Signing Physician Notes I have seen and examined this patient this am, I agree with this plan. Patient feels she would like to go home today. If she still feels well after lunch, she may be discharged to follow up with me in the office in 2 weeks. Subjective Patient is currently resting comfortably in bed. She notes some tenderness near her surgical incisions but overall her abdomen feels better than what was noted prior to surgery. Patient has tolerated some Jell-O since her surgery without any nausea or vomiting or exacerbation of abdominal pain. She has not passed any flatus since her surgery. Physical Exam Gastrointestinal (Abdomen): Abdomen is soft without distention. Surgical incisions are clean, dry, intact. Expected tenderness near surgical incision with palpation Results & Data Vital Signs (Past 12 Hours) Vital Signs Temp Pulse Pulse Pulse Resp BP Pulse Ox 07/17/25 03:26 37.0 C 83 20 95/62 L 92 07/17/25 00:24 37.8 C H 92 H 20 98/65 L 96 07/16/25 21:48 69 07/16/25 19:21 07/16/25 18:59 37.1 C 68 101/70 100 07/16/25 18:29 37.3 C 76 18 96/59 L 90 07/16/25 18:05 36.9 C 85 18 99/66 L 95 07/16/25 17:55 66 20 106/64 99 07/16/25 17:45 93 H 20 102/63 97 07/16/25 17:37 36.1 C L 102 H 22 100/72 100 O2 Del Method 07/17/25 03:26 Room Air 07/17/25 00:24 Room Air 07/16/25 21:48 07/16/25 19:21 Room Air 07/16/25 18:59 Room Air 07/16/25 18:29 Room Air 07/16/25 18:05 Room Air 07/16/25 17:55 Room Air 07/16/25 17:45 Room Air 07/16/25 17:37 Room Air PG Care Time/CCT Total # of Minutes Spent Total Time Spent with Patient: Total time spent is greater than 50% in coordination of care (as documented) at patient's floor/unit and/or counseling patient: Coding Level of Care Code 78591 Post Operative Follow-Up Diagnoses Acute cholecystitis K81.0
[2025-07-17 06:42] LABS: Hematocrit (blood only) 36.0 % (37.0-47.0); Hemoglobin 12.3 g/dl (12.0-16.0); Immature Granulocytes # (auto) 0.05 K/uL (0.01-0.20); Immature Granulocytes % (auto) 0.4 %; Mean Corpuscular Hemoglobin 29.6 pg (25.0-34.0); Mean Corpuscular Volume 86.7 fL (80.0-100.0); Platelet Count 162 K/uL (130-400); RDW Standard Deviation 40.5 fL (36.4-46.3); Red Blood Count 4.15 M/uL (4.20-5.40); White Blood Count 13.03 K/ul (4.8-10.8)
[2025-07-17 07:39] VITALS: RESP 18
[2025-07-17 07:43] LABS: Anion Gap 7.0 (3-11); Bilirubin,Total 1.1 mg/dl (0.2-1.0); Calcium 8.4 mg/dl (8.6-10.3); Carbon Dioxide 22.0 mmol/L (21-32); Chloride 109.0 mmol/L (98-107); Potassium 4.2 mmol/L (3.5-5.1); Sodium 138.0 mmol/L (136-145)
[2025-07-17 07:47] LABS: Hemoglobin A1C 4.5 % (4.5-5.6)
[2025-07-17 07:59] LABS: Alanine Aminotransferase 72.0 U/L (7-52); Albumin Globulin Ratio 1.2 (0.9-2); Alkaline Phosphatase 26.0 U/L (34-104); Blood Urea Nitrogen 8.0 mg/dl (6-23); Creatinine Clr Calc Pharmacy 137.9 ml/min; Globulin 2.6 gm/dl (2.5-4.0); Glucose 94.0 mg/dl (70-99(Fasting)); Total Protein 5.8 gm/dl (6.0-8.3)
--- NOTE | 2025-07-17 10:26 | Discharge Summary ---
Discharge Summary Date of Service July 17, 2025 Principal Dx & Hospital Course #1 = Principal Diagnosis (1) Acute cholecystitis: (2) No significant past medical history: Plan Patient was admitted for abdominal pain, chills and with gall bladder u/s showing findings consistent with acute cholecystitis. Gall bladder ultrasound revealed mildly enlarged echogenic liver and calculous cholecystitis. Underwent lap cholecystectomy with Dr. Nuñez on 07/17/25. Feeling significancy improved today with minimal surgical site tenderness. Received IV Zosyn during admission but not indicated to continue abx on discharge per discussion with gen surg. Passing post-op flatus, tolerating regular diet. Encouraged pain control with OTC Tylenol and script provided for oxycodone for severe breakthrough pain. Follow up with PCP next week. Gen surg follow up with Dr. Nuñez in 2 weeks. Hemodynamically stable at time of discharge home. Notes For Next Care Provider acute cholecystitis s/p lap cholecystectomy Medication Changes From Visit no change Admission HPI Per Admitting Provider History obtained from patient, family, and records. Medical history significant for GERD, cholelithiasis, obesity on Wegovy, ongoing vape use. 1 month history of upper abdominal pain usually precipitated by food intake. Some nausea symptoms. Occasional radiation to the back. Patient seen at PCP's office 5 days ago. Outpatient gallbladder ultrasound showed Cholelithiasis and intraluminal gallbladder sludge Outpatient General Surgery referral contemplated 2 weeks from now. Last night, patient had more intense achy abdominal pain going to the back and lower chest associated with nausea, emesis symptoms. No fever, no chills. Lowest SBP of 90s documented at the ER. IV Zosyn administered at the ER. Medical History as above Surgical History : Dental surgery Family History : Blood clot, stroke, DM Personal/Social history : Ongoing vape use, occasional EtOH intake, [employer] administrative project coordinator Admission Exam Per Admitting Provider GENERAL: Comfortable, pleasant, no respiratory distress SKIN: Normal color, warm HEENT: [place] palpebral conjunctivae, no ptosis, dry buccal mucosa NECK : Supple, no tenderness CHEST : CTA, no tenderness HEART : RRR, no obvious murmurs ABDOMEN: Some distention, RUQ tenderness EXTREMITIES : No LE swelling/tenderness, palpable pulses, no other conspicuous deformities noted NEUROLOGIC : Coherent, no facial asymmetry, no other gross focality Discharge Exam Gen: WD/WN, NAD,resting in bed comfortably, A&Ox3 HEENT: Normocephalic, atraumatic Lung: Clear to Auscultation bilaterally Heart: Regular rate, regular rhythm Abdomen: Soft, ND, expected TTP, 3 lap surgical incisions visualizing, clean and dry Extremities: no edema Skin: Warm, no rash Updated Medication List Medication Instructions Recorded Confirmed Type norethindrone acetate 1 mg-ethinyl 1 tab PO DAILY 06/28/25 07/16/25 History estradiol 20 mcg tablet (Microgestin) pantoprazole 40 mg tablet,delayed 40 mg PO DAILY #30 tabs 06/28/25 07/16/25 Rx release (Protonix) semaglutide (weight loss) 2.4 2.4 mg subcut WK 06/28/25 07/16/25 History mg/0.75 mL subcutaneous pen injector (Wegovy) oxycodone 5 mg tablet 5 mg PO Q8H PRN pain #12 tabs 07/16/25 Rx Hospital Stay Data Consultations 07/16/25 04:51 ED Decision to Admit Stat 07/16/25 05:53 Consult General Surgery Routine Procedures Performed Operation Date: 07/16/25 08:05 Actual Procedures p Laparoscopic Cholecystectomy(Not Applicable) - Yolette Nuñez, Diagnostic Imagining Performed 07/16/25 02:38 US GB [US gallbladder] Stat Pending Results Patient Have Any Pending Studies at Discharge: No Discharge Instructions Given to Patient (Per Discharging Provider) -- Follow-up with your primary care physician Dr. Rivero in 1 week -- Follow-up with your surgeon Dr. Nuñez as recommended in 2 weeks Okay to shower; no swimming or baths until incisions are completely healed. Seek immediate medical attention if your symptoms reoccur or worsen Please review medication list provided on discharge for any medication changes as instructed. Please call if you have any questions or problems. You can reach a [facility] hospitalist on duty at [facility] 24 hours a day by calling [phone] Total Time Total Time Spent Total Time Spent (In Minutes): 35 Supervising Physician Co-Signing Physician Notes Patient is seen and examined on day of discharge. States only having minimal soreness at the surgical site but otherwise no other complaints today. Tolerating regular diet. + Flatus, no BM today. On exam patient is well-built and nourished, no apparent distress, normocephalic atraumatic, EOMI, normal breath sounds, clear to auscultation, S1-S2, no murmur, no pedal edema, abdomen soft, mild tenderness at surgical site, normal bowel sounds, alert, awake, oriented, grossly no focal deficits. Patient is being managed for acute cholecystitis S/P cholecystectomy. Appreciate surgery help. Advised to follow-up with PCP and surgery on discharge. Tolerating regular diet. Advised to use stool softeners if needed to help prevent constipation. I have reviewed the advanced practitioner's documentation on the date of service referred in note and agree with plan. Patient's care is coordinated with Camilla Tanner PA-C. Please refer to the documentation above for details of patient's presentation and for discussion of other issues. I spent a total [id number] coordinating, documenting, and providing care for this patient excluding time spent in the performance of separately billed services or time spent by another provider/QHP.
[2025-07-17 11:40] VITALS: BP 99/66; PULSE 73; TEMP 98.2; O2SAT 95
== END 2025-07-17 13:43 | disposition home or self-care (01) ==
LOC: ED 02:16 → 2W 04:58 → INTOOBSV 04:58 → 2W 05:50